=== PATIENT | male | born 2000 | race Caucasian/White ===

== ENCOUNTER 2019-03-08 17:32 | Emergency (ER) | payer OTHER ==
[~2019-03-08] VITALS: Ht 167.6 cm; Wt 63.5 kg
[2019-03-08 18:40] VITALS: BP 109/60
[2019-03-08] MEDS ORDERED: MOBIC15 MG PO (19:27)
[2019-03-08] MEDS ORDERED: CYCLOBENZAPRINE5 MG PO (19:27)
== END 2019-03-08 19:41 | disposition home or self-care (01) ==
LOC: ER 17:32
DX: M54.5 Low back pain (principal); M54.2 Cervicalgia; V89.2XXA Person injured in unspecified motor-vehicle accident, traffic, initial encounter; Y93.89 Activity, other specified; Y92.411 Interstate highway as the place of occurrence of the external cause; Y99.8 Other external cause status